=== PATIENT | female | born 1985 | race Native Hawaiian/Other Pacific Islander ===

== ENCOUNTER 2017-08-25 08:35 | Inpatient (IN) | payer OTHER ==
[2017-08-25] MEDS ORDERED: ePHEDrine SULFATE IV PRN (10:30)
[2017-08-25] MEDS ORDERED: XYLOCAINE 2% INFILTRATI NR ×2 (10:30→11:00)
[2017-08-25 10:49] LABS: Hemoglobin 6.2 gm/dl (10.1-14.3); Mean Corpuscular HGB Conc 34 % (30-34); Mean Corpuscular Hemoglobin 29 pg (28-32); Mean Corpuscular Volume 86 fl (79-97); Platelet Count 307 K/mm3 (140-440); Red Blood Count 2.12 M/mm3 (3.65-5.03)
[2017-08-25] MEDS ORDERED: BRETHINE IVP PRN ×2 (11:00)
[2017-08-25] MEDS ORDERED: BRETHINE SUB-Q PRN ×2 (11:00)
[2017-08-25] MEDS ORDERED: MINERAL OIL PO PRN (11:00)
[2017-08-25] MEDS ORDERED: STADOL IV PRN (11:00)
[2017-08-25] MEDS ORDERED: LACTATED RINGERS 1,000 ML IV SCH (11:00)
--- NOTE | 2017-08-25 11:00 | History and Physical Report ---
History of Present Illness Date of examination: 08/25/17 Date of admission: 08/25/17 09:28 Chief complaint: Active labor History of present illness: 32 yo FE , [place] 08/28/2017, 39w5d (LMP), 0 positive, Rubella Immune, GBS negative, presents in spontaneous labor. Pt initiated early care at [facility]. course uneventful. 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 denies: smoking, alcohol abuse, prescription drug abuse, IV drug use - Obstetrical History Expected Date of Delivery: 08/28/17 Actual Gestation: 39 Week(s) 4 Day(s) : 5 Para: 4 Hx # Term Pregnancies: 4 Number of Pregnancies: 0 Spontaneous Abortions: 0 Induced : 0 Number of Living Children: 4 Medications and Allergies Allergies Allergy/AdvReac Type Severity Reaction Status Date / Time No Known Allergies Allergy Verified 05/28/14 09:40 Active Meds: Active Medications Butorphanol Tartrate (Stadol) 2 mg IV Q2H PRN PRN Reason: Labor Pain Ephedrine Sulfate (Ephedrine Sulfate) 10 mg IV Q2M PRN PRN Reason: Hypotension Lactated Ringer's (Lactated Ringers) 1,000 mls @ 125 mls/hr IV DIRECT JUAN Oxytocin/Sodium Chloride (Pitocin/Ns 20 Unit/1000ml Drip) 20 units in 1,000 mls @ 125 mls/hr IV DIRECT JUAN Lidocaine (Xylocaine 2%) 20 ml INFILTRATI ONCE NR Stop: 08/26/17 10:29 Lidocaine (Xylocaine 2%) 20 ml INFILTRATI ONCE ONE Stop: 08/25/17 10:45 Mineral Oil (Mineral Oil) 30 ml PO QHS PRN PRN Reason: Constipation Terbutaline Sulfate (Brethine) 0.25 mg SUB-Q ONCE PRN PRN Reason: Hyperstimulation/Hypertonicity Terbutaline Sulfate (Brethine) 0.25 mg IVP ONCE PRN PRN Reason: Hyperstimulation/Hypertonicity Terbutaline Sulfate (Brethine) 0.25 mg SUB-Q ONCE PRN PRN Reason: Hyperstimulation/Hypertonicity Terbutaline Sulfate (Brethine) 0.25 mg IVP ONCE PRN PRN Reason: Hyperstimulation/Hypertonicity Review of Systems Cardiovascular: no chest pain, no shortness of breath Respiratory: no cough, no shortness of breath Breasts: normal Gastrointestinal: no abdominal pain, no nausea, no vomiting, no diarrhea, no constipation Genitourinary: normal appearance, contractions, no vaginal bleeding, no leakage of fluid, no dysuria, no genital sores Integumentary: no rash, no sores, no lesions - Vital Signs Vital signs: Vital Signs Temp 98.0 F 08/25/17 10:40 Temp Pulse Resp BP Pulse Ox 98.0 F 08/25/17 10:40 - Physical Exam Breasts: Positive: normal Cardiovascular: Regular rate, Normal S1, Normal S2 Lungs: Positive: Clear to auscultation, Normal air movement Abdomen: Positive: normal appearance, soft, normal bowel sounds. Negative: distention Genitourinary (Female): Positive: normal external genitalia, normal perenium Vulva: both: normal Vagina: Positive: normal moisture Uterus: Positive: enlarged (Gravid) Anus/Rectum: Positive: normal perianal skin Extremities: Positive: normal Deep Tendon Reflex Grade: Normal +2 - Obstetrical FHR: category 1 Uterine Contraction Monitor Mode: External Cervical Dilatation: 7 (AROM, moderate clear fluid) Cervical Effacement Percentage: 75 station: -2 Uterine Contraction Frequency (min): 2-4 Uterine Contraction Pattern: Regular Uterine Tone Measurement Phase: Resting Uterine Contraction Intensity: Moderate Results Result Diagrams: 08/25/17 10:00 Abnormal lab results 08/25/17 Range/Units 10:00 WBC 11.9 H (4.5-11.0) K/mm3 RBC 2.12 L (3.65-5.03) M/mm3 Hgb 6.2 L (10.1-14.3) gm/dl All other labs normal. Assessment and Plan A: Term IUP at 39w4d Active labor GBS Negative Category 1 tracing P: Admit to L&D Routine antepartum orders May have IV pain med/epidural if desires
[2017-08-25 11:08] LABS: Hematocrit 18.2 % (30.3-42.9)
[2017-08-25] MEDS ORDERED: BENADRYL PO PRN (12:19)
[2017-08-25] MEDS ORDERED: TUCKS PAD TP PRN (12:19)
[2017-08-25] MEDS ORDERED: LANSINOH TP PRN (12:19)
[2017-08-25] MEDS ORDERED: ZOFRAN IV PRN (12:19)
[2017-08-25] MEDS ORDERED: PHENERGAN PO PRN (12:19)
[2017-08-25] MEDS ORDERED: NORCO 5/325 PO PRN (12:19)
[2017-08-25] MEDS ORDERED: TYLENOL PO PRN (12:19)
[2017-08-25] MEDS ORDERED: DULCOLAX PR PRN (12:19)
[2017-08-25] MEDS ORDERED: MILK OF MAGNESIA PO PRN (12:19)
[2017-08-25] MEDS: PITOCin/NS 20 UNIT/1000ML DRIP 20 UNITS/1,000 ML BAG IV SCH ×2 (12:33→13:40)
--- NOTE | 2017-08-25 12:36 | Procedure Note ---
OB Delivery Note - Delivery Date of Delivery: 08/25/17 Surgeon: TAHMINA POSADA (RENARD) Estimated blood loss: 200cc - Vaginal Delivery presentation: vertex Delivery position: OA Intrapartum events: none Delivery induction: none Delivery augmentation: rupture of membranes Delivery monitor: external FHT, external uterine Route of delivery: Delivery placenta: spontaneous (12:07) Delivery cord: 3 umbilical vessels Episiotomy: none Delivery laceration: none Anesthesia: none Delivery comments: viable female JAMAAL position, over intact perineum at 12:00. to mothers abdomen for [id number]. Delayed cord clamping and then cut by myself. Cord blood collected per protocol. Spontaneous slater delivery of intact placenta at 12:07. FF@u, scant lochia, no tears or lacerations. EBL 200ml. Infant and mother left ins table condition in L&D. - A at 1 minute: 9 at 5 minutes: 9 Infant Gender: Female (3207 grams, 7lbs 1oz)
[2017-08-25] MEDS ORDERED: SODIUM CHLORIDE FLUSH SYRINGE 10 ML IV NR (13:00)
[2017-08-25] MEDS ORDERED: FEOSOL PO SCH (14:00)
[2017-08-25] MEDS: MOTRIN PO SCH (17:50)
[2017-08-26 01:09] LABS: Hematocrit 30.4 % (30.3-42.9)
[2017-08-26 02:42] LABS: Hematocrit 29.7 % (30.3-42.9); Hemoglobin 9.8 gm/dl (10.1-14.3)
[2017-08-26] MEDS: MOTRIN PO SCH (06:41)
--- NOTE | 2017-08-26 09:29 | Progress Note ---
Assessment and Plan - Patient Problems (1) Status post normal vaginal delivery Current Visit: Yes Status: Acute Plan to address problem: PPD 1 - stable Continue routine PP orders Discharge to home later today F/U at [facility] in 6 weeks for PP exam (2) Anemia in puerperium, baby delivered during current episode of care Current Visit: Yes Status: Acute Plan to address problem: Asymptomatic Continue iron therapy Subjective - Subjective Date of service: 08/26/17 Principal diagnosis: s/p , PPD 1 Patient reports: appetite normal, voiding normally, pain well controlled, ambulating normally, no dizzy ambulation, no bowel movement : doing well, nursing well Objective - Vital Signs Latest vital signs: Vital Signs Temp Pulse Resp BP BP Pulse Ox 08/26/17 08:28 98.4 F 55 L 20 112/58 97 08/26/17 06:41 18 08/26/17 01:48 98.4 F 64 20 98/51 98 08/25/17 21:53 98.3 F 57 L 20 124/66 99 08/25/17 19:25 98.2 F 08/25/17 18:50 16 08/25/17 14:00 98.5 F 08/25/17 13:33 59 L 107/59 08/25/17 13:18 62 107/55 08/25/17 13:03 67 102/59 08/25/17 12:48 69 121/60 08/25/17 12:33 73 115/71 08/25/17 12:12 82 115/58 08/25/17 10:40 98.0 F 08/25/17 10:00 97.0 F L Intake and Output 08/25/17 08/26/17 08/26/17 23:59 07:59 15:59 Output Total 1000 Balance -1000 Output: Urine 1000 Void 1000 Other: Total, Output Amount 1000 - Exam Cardiovascular: Present: Regular rate, No murmurs Lungs: Present: Clear to auscultation, Normal air movement Abdomen: Present: normal appearance, soft Vulva: both: normal Uterus: Present: normal, firm, fundal height at umbilicus Extremities: Present: normal - Labs Labs: Abnormal lab results 08/25/17 08/26/17 08/26/17 Range/Units 10:00 00:37 02:28 WBC 11.9 H (4.5-11.0) K/mm3 RBC 2.12 L (3.65-5.03) M/mm3 Hgb 6.2 L 10.0 L D 9.8 L (10.1-14.3) gm/dl Hct 18.2 L* 29.7 L (30.3-42.9) %
--- NOTE | 2017-08-26 09:35 | Discharge Summary ---
Providers - Providers Date of Admission: 08/25/17 09:28 Date of discharge: 08/26/17 Attending physician: HERMILA LIRA MD Primary care physician: HERMILA LIRA MD Hospitalization Reason for admission: active labor, IUP at term Delivery: Episiotomy: none Laceration: none Other procedures: none complications: none Discharge diagnosis: IUP at term delivered [place] baby: female Hospital course: Uncomplicated Condition at discharge: Stable Disposition: MI-01 TO HOME OR SELFCARE - Discharge Diagnoses (1) Status post normal vaginal delivery Status: Acute (2) Anemia in puerperium, baby delivered during current episode of care Status: Acute Comment: Asymptomatic Continue iron therapy Plan - Discharge Medications Prescriptions: Ferrous Sulfate [Feosol 325 MG tab] 325 mg PO BID #60 tablet - Provider Discharge Summary Activity: routine, no sex for 6 weeks, no heavy lifting 4 weeks, no strenuous exercise Diet: routine Instructions: routine Additional instructions: [] Smoking cessation referral if applicable(refer to patient education folder for contact #) [] Refer to [facility] Booklet Call your doctor immediately for: * Fever > 100.5 * Heavy vaginal bleeding ( >1 pad per hour) * Severe persistent headache * Shortness of breath * Reddened, hot, painful area to leg or breast * Drainage or odor from incision. * Keep incision clean and dry at all times and follow doctor's instructions regarding bathing/showering - Follow up plan Follow up: HERMILA LIRA MD [Primary Care Provider] - 6 Weeks (Follow-up at [facility] in 6 weeks for exam )
[2017-08-26 14:32] VITALS: BP 110/55
== END 2017-08-26 15:40 | disposition home or self-care (01) | DRG 775 ==
LOC: TRG 08:35 → LD 09:28 → OB 17:05
PROVIDERS: ADMIT Obstetrics & Gynecology; ATTEND Obstetrics & Gynecology
PROC: 10E0XZZ Delivery of Products of Conception, External Approach (ICD-10-PCS; principal; 2017-08-25)
DX: O90.81 Anemia of the puerperium (principal); D64.9 Anemia, unspecified; Z3A.39 39 weeks gestation of pregnancy; Z37.0 Single live birth
CPT/HCPCS: 36415; 59025; 85014; 85018; 85027; 86592; 86850; 86900; 86901; 99211; G0463; J0595; J2590